=== PATIENT | male | born 1970 | race Caucasian/White ===

== ENCOUNTER 2018-10-27 13:13 | Emergency (ER) | payer OTHER ==
[2018-10-27] MEDS ORDERED: Polyethylene Glycol 3350 Powder 17 GM Packet PO ONE (14:08)
--- NOTE | 2018-10-27 14:10 | EDM.PDOC ---
ED HPI GENERAL MEDICAL PROBLEM - General Chief Complaint: General Stated Complaint: SHAKY, DIZZINESS Time Seen by Provider: 10/27/18 13:55 Source of Information: Reports: Patient, Old Records History Limitations: Reports: No Limitations - History of Present Illness INITIAL COMMENTS - FREE TEXT/NARRATIVE: 48 yo male here with mild dizziness, increased heart rate and weakness that began this afternoon. No recent bleeding, pain, fever, or diarrhea. Feels a little constipated. Has not missed any of his Toprol dosing. Urine has been darker than usual. Admits he hasn't been to the clinic for quite awhile. Is taking is metformin as prescribed. Last checked BS several days ago and was between 100 and 200. Onset: Today Onset Date: 10/27/18 Onset Time: 12:30 Duration: Minutes:, Constant Location: Reports: Chest Quality: Reports: Other (feels heart palpitations) Severity: Mild Improves with: Reports: None Worsens with: Reports: None Context: Reports: Other (uncertain, see HPI) Associated Symptoms: Reports: No Other Symptoms. 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: Reports: Other (see below) (none) - Related Data Allergies Allergy/AdvReac Type Severity Reaction Status Date / Time cyclobenzaprine Allergy Seizure Verified 10/27/18 13:50 [From Flexeril] Home Meds: Home Meds Aspirin [Low Dose Aspirin EC] 81 mg PO DAILY 10/27/18 [History] Lisinopril [Zestril] 10 mg PO DAILY 10/27/18 [History] Magnesium Oxide [Magnesium] 400 mg PO BID 10/27/18 [History] Metoprolol Succinate [Toprol Xl] 50 mg PO DAILY 10/27/18 [History] amLODIPine Besylate [Amlodipine Besylate] 10 mg PO DAILY 10/27/18 [History] atorvaSTATin [Lipitor] 80 mg PO BEDTIME 10/27/18 [History] metFORMIN [Glucophage] 1,000 mg PO BIDMEALS 10/27/18 [History] Past Medical History HEENT History: Reports: Other (See Below) Other HEENT History: PERITONSILLAR ABSCESS Cardiovascular History: Reports: CAD, High Cholesterol, Hypertension, [place] Other Cardiovascular History: dizzy spells. mi 2004 Respiratory History: Reports: Other (See Below) Other Respiratory History: snoring. acute hypoxemia respiratory faliure Gastrointestinal History: Reports: Diverticulosis, Other (See Below) Other Gastrointestinal History: thickening of sigmoid colon. fatty liver Musculoskeletal History: Reports: Arthritis, Neck Pain, Chronic, Other (See Below) Other Musculoskeletal History: radiculopathy Neurological History: Reports: CVA, Seizure Other Neuro History: x2 2018 Psychiatric History: Reports: Addiction Other Psychiatric History: acute alcohol dependence quit 7 monts ago Endocrine/Metabolic History: Reports: Diabetes, Type II Hematologic History: Reports: Other (See Below) Other Hematologic History: vit D deficiency - Past Surgical History Cardiovascular Surgical History: Reports: Coronary Artery Stent, Percutaneous Transluminal Angioplasty Social & Family History - Tobacco Use Smoking Status *Q: Former Smoker Used Tobacco, but Quit: Yes Month/Year Tobacco Last Used: 7 months - Caffeine Use Caffeine Use: Reports: Soda - Recreational Drug Use Recreational Drug Use: No ED ROS GENERAL - Review of Systems Review Of Systems: See Below Constitutional: Reports: No Symptoms HEENT: Reports: No Symptoms Respiratory: Reports: No Symptoms Cardiovascular: Reports: Palpitations Endocrine: Reports: No Symptoms GI/Abdominal: Reports: Constipation. Denies: Abdominal Pain, Black Stool, Bloody Stool, Diarrhea, Distension, Flatus, Hematemesis, Hematochezia, Melena, Nausea, Vomiting : Reports: No Symptoms Musculoskeletal: Reports: No Symptoms Skin: Reports: No Symptoms Neurological: Reports: No Symptoms Psychiatric: Reports: No Symptoms ED EXAM, GENERAL - Physical Exam Exam: See Below Exam Limited By: No Limitations General Appearance: Alert, WD/WN, No Apparent Distress Eye Exam: Bilateral Eye: Normal Inspection Ears: Normal External Exam, Normal Canal, Hearing Grossly Normal, Normal TMs Ear Exam: Bilateral Ear: Auricle Normal, Canal Normal Nose: Normal Inspection, No Blood Throat/Mouth: Normal Inspection, Normal Lips, Normal Oropharynx, Normal Voice, No Airway Compromise Head: Atraumatic, Normocephalic Neck: Normal Inspection Respiratory/Chest: No Respiratory Distress Cardiovascular: Regular Rate, Rhythm, No Edema, Tachycardia. No: Irregularly Irregular GI/Abdominal: Normal Bowel Sounds, Soft, No Distention, Tender (mild LLQ pain, not worse with coughing). No: Distended Back Exam: Normal Inspection. No: CVA Tenderness (R), CVA Tenderness (L) Extremities: Normal Inspection, Normal Range of Motion, Non-Tender, No Pedal Edema Neurological: Alert, Oriented, CN II-XII Intact, Normal Cognition, No Motor/ Sensory Deficits Psychiatric: Normal Affect, Normal Mood Skin Exam: Warm, Dry, Intact, Normal Color, No Rash EKG INTERPRETATION EKG Date: 10/27/18 Time: 14:10 Rhythm: NSR Rate (Beats/Min): 96 [place]: Normal P-Wave: Present QRS: Normal ST-T: Normal QT: Normal Comparison: NA - No Prior EKG Course - Vital Signs Text/Narrative:: Accucheck 210 after tx. Last Recorded V/S: Last Vital Signs Temp 36.8 C 10/27/18 13:46 Pulse 112 H 10/27/18 14:00 Resp 16 10/27/18 14:00 BP 114/70 10/27/18 14:00 Pulse Ox 98 10/27/18 14:00 Orthostatic Blood Pressure [ 114/70 Standing] Orthostatic Blood Pressure [ 110/74 Sitting] Orthostatic Blood Pressure [ 119/76 Supine] - Orders/Labs/Meds Orders: Active Orders 24 hr Category Date Time Status Cardiac Monitoring [RC] .As Directed Care 10/27/18 13:44 Active EKG Documentation Completion [RC] ASDIRECTED Care 10/27/18 14:06 Active Orthostatic Vital Signs [RC] ASDIRECTED Care 10/27/18 14:05 Active EKG 12 Lead [EK] Routine Ther 10/27/18 14:06 Ordered Labs: Laboratory Tests 10/27/18 10/27/18 10/27/18 Range/Units 14:12 14:12 14:12 WBC 5.6 (4.5-11.0) K/uL RBC 4.37 (4.30-5.90) M/uL Hgb 12.2 (12.0-15.0) g/dL Hct 36.0 L (40.0-54.0) % MCV 82 (80-98) fL MCH 28 (27-31) pg MCHC 34 (32-36) % Plt Count 210 (150-400) K/uL D-Dimer, Quantitative (0.0-400.0) ng/mL Sodium 135 L (140-148) mmol/L Potassium 4.2 (3.6-5.2) mmol/L Chloride 98 L (100-108) mmol/L Carbon Dioxide 27 (21-32) mmol/L Anion Gap 14.2 H (5.0-14.0) mmol/L BUN 10 (7-18) mg/dL Creatinine 1.1 (0.8-1.3) mg/dL Est Cr Clr Drug Dosing 86.52 mL/min Estimated GFR (MDRD) > 60 (>60) Glucose 378 H (74-106) mg/dL Calcium 9.0 (8.5-10.1) mg/dL Troponin I < 0.017 (0.000-0.056) ng/mL TSH, Ultra Sensitive 2.042 (0.358-3.740) uIU/mL Urine Color Urine Appearance Urine pH (4.5-8.0) Ur Specific [place] (1.008-1.030) Urine Protein (NEGATIVE) mg/dL Urine Glucose (UA) (NEGATIVE) mg/dL Urine Ketones (NEGATIVE) mg/dL Urine Occult Blood (NEGATIVE) Urine Nitrite (NEGAITVE) Urine Bilirubin (NEGATIVE) Urine Urobilinogen (NORMAL) mg/dL Ur Leukocyte Esterase (NEGATIVE) Urine RBC (0-5) Urine WBC (0-5) Ur Epithelial Cells Amorphous Sediment Urine Bacteria Urine Mucus 10/27/18 10/27/18 Range/Units 14:12 14:40 WBC (4.5-11.0) K/uL RBC (4.30-5.90) M/uL Hgb (12.0-15.0) g/dL Hct (40.0-54.0) % MCV (80-98) fL MCH (27-31) pg MCHC (32-36) % Plt Count (150-400) K/uL D-Dimer, Quantitative < 100 (0.0-400.0) ng/mL Sodium (140-148) mmol/L Potassium (3.6-5.2) mmol/L Chloride (100-108) mmol/L Carbon Dioxide (21-32) mmol/L Anion Gap (5.0-14.0) mmol/L BUN (7-18) mg/dL Creatinine (0.8-1.3) mg/dL Est Cr Clr Drug Dosing mL/min Estimated GFR (MDRD) (>60) Glucose (74-106) mg/dL Calcium (8.5-10.1) mg/dL Troponin I (0.000-0.056) ng/mL TSH, Ultra Sensitive (0.358-3.740) uIU/mL Urine Color Yellow Urine Appearance Cloudy Urine pH 5.0 (4.5-8.0) Ur Specific [place] 1.010 (1.008-1.030) Urine Protein Negative (NEGATIVE) mg/dL Urine Glucose (UA) >=1000 H (NEGATIVE) mg/dL Urine Ketones Negative (NEGATIVE) mg/dL Urine Occult Blood Negative (NEGATIVE) Urine Nitrite Negative (NEGAITVE) Urine Bilirubin Negative (NEGATIVE) Urine Urobilinogen Normal (NORMAL) mg/dL Ur Leukocyte Esterase Negative (NEGATIVE) Urine RBC 0-5 (0-5) Urine WBC 0-5 (0-5) Ur Epithelial Cells Rare Amorphous Sediment Few Urine Bacteria Not seen Urine Mucus Few Meds: Medications Discontinued Medications Generic Name Dose Route Start Last Admin Trade Name Freq PRN Reason Stop Dose Admin Lactated Ringer's 1,000 mls @ 1,000 mls/hr 10/27/18 14:46 10/27/18 15:02 Ringers, Lactated IV 10/27/18 15:45 1,000 mls/hr BOLUS ONE Administration Insulin Human Regular 12 unit 10/27/18 14:46 10/27/18 15:03 Humulin R SUBCUT 10/27/18 14:47 12 units ONETIME ONE Administration Polyethylene Glycol 34 gm 10/27/18 14:08 10/27/18 14:39 Miralax PO 10/27/18 14:09 34 gm ONETIME ONE Administration Departure - Departure Time of Disposition: 16:00 Disposition: Home, Self-Care 01 Condition: Fair Clinical Impression: Elevated blood sugar, Mild dehydration - Discharge Information *PRESCRIPTION DRUG MONITORING PROGRAM REVIEWED*: No *COPY OF PRESCRIPTION DRUG MONITORING REPORT IN PATIENT JAMILA: No Instructions: Hyperglycemia, [id number] Referrals: Blair Gray MD [Primary Care Provider] - Forms: ED Department Discharge Additional Instructions: Increase your metformin to 1000 mg in the morning and with supper and add a half tablet at lunch. Follow a diabetic diet closely. Get as much aerobic exercise as you can. Recheck in the clinic [facility]. - My Orders Last 24 Hours: My Active Orders 10/27/18 13:44 Cardiac Monitoring [RC] .As Directed 10/27/18 14:05 Orthostatic Vital Signs [RC] ASDIRECTED 10/27/18 14:06 EKG Documentation Completion [RC] ASDIRECTED EKG 12 Lead [EK] Routine - Assessment/Plan Last 24 Hours: My Active Orders 10/27/18 13:44 Cardiac Monitoring [RC] .As Directed 10/27/18 14:05 Orthostatic Vital Signs [RC] ASDIRECTED 10/27/18 14:06 EKG Documentation Completion [RC] ASDIRECTED EKG 12 Lead [EK] Routine
[2018-10-27] MEDS ORDERED: Lactated Ringers 1,000 ML IV ONE (14:46)
[2018-10-27] MEDS ORDERED: Insulin Regular, Human 100 Units/ML 3 ML Vial SUBCUT ONE (14:46)
== END 2018-10-27 16:14 | disposition home or self-care (01) ==
LOC: JP.ED 13:13
DX: E11.65 Type 2 diabetes mellitus with hyperglycemia (principal); E86.0 Dehydration; I25.10 Atherosclerotic heart disease of native coronary artery without angina pectoris; E78.00 Pure hypercholesterolemia, unspecified; I10 Essential (primary) hypertension; I25.2 Old myocardial infarction; Z88.8 Allergy status to other drugs, medicaments and biological substances; Z79.82 Long term (current) use of aspirin; Z79.899 Other long term (current) drug therapy; Z79.84 Long term (current) use of oral hypoglycemic drugs; Z86.73 Personal history of transient ischemic attack (TIA), and cerebral infarction without residual deficits; Z87.891 Personal history of nicotine dependence
CPT/HCPCS: 36415; 80048; 81001; 82962; 84443; 84484; 85027; 85379; 93005; 96360; 99284; A9270; J7120; J1815-GY